=== PATIENT | male | born 1985 | race Caucasian/White ===

== ENCOUNTER 2022-11-30 16:27 | Emergency (ER) | payer BC | END 2022-11-30 19:11 | disposition home or self-care (01) | LOC: CSHERS 16:27 | DX: R07.9 Chest pain, unspecified (principal) | CPT/HCPCS: 36415; 71045; 84484; 93005 ==

== ENCOUNTER 2024-05-27 21:25 | Emergency (ER) | payer BC ==
[2024-05-27] MEDS ORDERED: Proparacaine 0.5% Opth 15 ML BOT ONE (21:51)
[2024-05-27] MEDS ORDERED: Fluorescein Opthalmic Strip ONE (21:51)
== END 2024-05-27 23:03 | disposition home or self-care (01) ==
LOC: CSHERS 21:25
DX: T15.12XA Foreign body in conjunctival sac, left eye, initial encounter (principal); Z55.0 Illiteracy and low-level literacy; X58.XXXA Exposure to other specified factors, initial encounter
CPT/HCPCS: 65205